=== PATIENT | female | born 1945 | race Hispanic/Latino ===

== ENCOUNTER 2023-06-05 08:13 | Day surgery (SDC) | payer OTHER, MEDICARE ==
[2023-06-03 11:12] LABS: BASOPHILS # (AUTO) 0.05 K/uL (0.00-0.20); BASOPHILS % (AUTO) 0.7 % (0.0-5.0); EOSINOPHILS # (AUTO) 0.08 K/uL (0.00-0.70); HEMATOCRIT 38.5 % (36-48); IMMATURE GRANULOCYTE ABSOLUTE 0.02 K/uL (0-1); LYMPHOCYTES # (AUTO) 1.6 K/uL (1.0-4.8); LYMPHOCYTES % (AUTO) 21.1 % (21.0-51.0); MEAN CORPUSCULAR HEMOGLOBIN 34.5 pg (27.0-33.0); MEAN CORPUSCULAR HGB CONC 35.6 g/dL (32.0-36.0); MONOCYTES # (AUTO) 1.1 K/uL (0.1-1.0); MONOCYTES % (AUTO) 13.8 % (3.0-13.0); NEUTROPHILS # (AUTO) 4.9 K/uL (1.8-7.7); NEUTROPHILS % (AUTO) 63.1 % (40.0-77.0); PLATELET COUNT (AUTO) 172 K/uL (130-400); RED BLOOD CELL COUNT(AUTO) 3.97 MIL/uL (4.00-5.50); RED CELL DISTRIBUTION WIDTH 13.1 % (11.0-15.5); WHITE BLOOD COUNT (AUTO) 7.7 K/uL (4.8-10.8)
[2023-06-03 11:16] VITALS: BP 147/78; PULSE 85; RESP 18
[2023-06-03 11:19] LABS: CREATININE 0.9 mg/dL (0.5-1.5)
[2023-06-03 11:21] LABS: INR 1.03 (0.85-1.15); PROTHROMBIN TIME 11.9 SEC (9.6-11.6)
[2023-06-03 11:22] LABS: PARTIAL THROMBOPLASTIN TIME 31.5 SEC (26.3-35.5)
[~2023-06-05] VITALS: Ht 154.9 cm; Wt 84.3 kg
[2023-06-05] VITALS (16 sets, daily range): BP systolic 135–165; BP diastolic 61–86; PULSE 79–93; RESP 14–17
[~2023-06-05 08:13] MED LIST: APIX5TAB PO; CARV25TA PO; HYDR25TA67 PO; HYDR50TA37 PO; ROSU10TA28 PO
[2023-06-05] MEDS ORDERED: NALOXONE HCL 0.4 MG/1 ML ML ONE (08:33)
[2023-06-05] MEDS ORDERED: 0.9%NACL 1000ML 1,000 ML IV ONE (08:43)
[2023-06-05] MEDS ORDERED: FLUMAZENIL 0.1MG/1ML 5ML VIAL IV ONE (09:23)
[2023-06-05] MEDS ORDERED: LIDOCAINE HCL 2% VISCOUS 15 ML UDCUP PO ONE (09:30)
[2023-06-05] MEDS ORDERED: FENTANYL CITRATE PF 50 MCG/1 ML 2ML VIAL IVP ONE (09:30)
[2023-06-05] MEDS ORDERED: MIDAZOLAM HCL 1 MG/ML 2ML VIAL IVP ONE (09:30)
[2023-06-05] MEDS: FENTANYL CITRATE PF 50 MCG/1 ML 2ML VIAL ONE (10:28)
[2023-06-05] MEDS: LIDOCAINE HCL 2% VISCOUS 15 ML UDCUP ONE (10:28)
[2023-06-05] MEDS: MIDAZOLAM HCL 1 MG/ML 2ML VIAL ONE (10:28)
== END 2023-06-05 12:05 | disposition home or self-care (01) ==
LOC: DAH 08:13
PROVIDERS: ATTEND Student in an Organized Health Care Education/Training Program
DX: I48.91 Unspecified atrial fibrillation (principal); I08.1 Rheumatic disorders of both mitral and tricuspid valves; E78.5 Hyperlipidemia, unspecified; I10 Essential (primary) hypertension; I25.10 Atherosclerotic heart disease of native coronary artery without angina pectoris; Z88.6 Allergy status to analgesic agent; Z88.8 Allergy status to other drugs, medicaments and biological substances; Z88.0 Allergy status to penicillin; Z88.1 Allergy status to other antibiotic agents; Z82.49 Family history of ischemic heart disease and other diseases of the circulatory system; Z80.9 Family history of malignant neoplasm, unspecified; Z79.899 Other long term (current) drug therapy
CPT/HCPCS: 80048; 85025; 85610; 85730; 36415; 93005; 93325; 93312; J3010; J7030; J2250; A4615; A4215; A4223 ×3; A4657; A7002; A4222; A4221; A4663; A4216 ×2; A4606; 99152; J2310; J3490; G0500

== ENCOUNTER 2023-07-23 08:00 | Day surgery (SDC) | payer OTHER, MEDICARE ==
[2023-07-21 13:52] LABS: BASOPHILS # (AUTO) 0.06 K/uL (0.00-0.20); BASOPHILS % (AUTO) 0.9 % (0.0-5.0); EOSINOPHILS # (AUTO) 0.11 K/uL (0.00-0.70); EOSINOPHILS % (AUTO) 1.7 % (0.0-8.0); HEMATOCRIT 37.9 % (36-48); IMMATURE GRANULOCYTE ABSOLUTE 0.02 K/uL (0-1); LYMPHOCYTES # (AUTO) 1.9 K/uL (1.0-4.8); LYMPHOCYTES % (AUTO) 29.1 % (21.0-51.0); MEAN CORPUSCULAR HEMOGLOBIN 33.9 pg (27.0-33.0); MEAN CORPUSCULAR HGB CONC 35.1 g/dL (32.0-36.0); MEAN CORPUSCULAR VOLUME 96.7 fL (79-99); MONOCYTES # (AUTO) 0.8 K/uL (0.1-1.0); MONOCYTES % (AUTO) 12.7 % (3.0-13.0); NEUTROPHILS # (AUTO) 3.6 K/uL (1.8-7.7); NEUTROPHILS % (AUTO) 55.3 % (40.0-77.0); PLATELET COUNT (AUTO) 144 K/uL (130-400); RED BLOOD CELL COUNT(AUTO) 3.92 MIL/uL (4.00-5.50); RED CELL DISTRIBUTION WIDTH 12.5 % (11.0-15.5); WHITE BLOOD COUNT (AUTO) 6.5 K/uL (4.8-10.8)
[2023-07-21 13:55] VITALS: BP 177/89; PULSE 71; RESP 18
[2023-07-21 14:04] LABS: CREATININE 0.9 mg/dL (0.5-1.0); POTASSIUM 3.5 mmol/L (3.5-5.1)
[2023-07-23] VITALS (11 sets, daily range): BP systolic 132–166; BP diastolic 60–76; PULSE 51–69; RESP 14–18
[~2023-07-23] VITALS: Ht 154.9 cm; Wt 84.8 kg
[~2023-07-23 08:00] MED LIST changes: +AMIO200T68 PO; +ATOR40TA69 PO; +FURO20TA4 PO; +POTA-364 PO; -ROSU10TA28 PO
[2023-07-23 09:40] LABS: INR 1.07 (0.85-1.15); PROTHROMBIN TIME 12.6 SEC (9.6-11.6)
== END 2023-07-23 11:20 | disposition home or self-care (01) ==
LOC: DAH 08:00
PROVIDERS: ATTEND Student in an Organized Health Care Education/Training Program
DX: I48.91 Unspecified atrial fibrillation (principal); E78.5 Hyperlipidemia, unspecified; I11.9 Hypertensive heart disease without heart failure; I25.10 Atherosclerotic heart disease of native coronary artery without angina pectoris; E87.1 Hypo-osmolality and hyponatremia; R60.0 Localized edema; Z79.899 Other long term (current) drug therapy; Z98.890 Other specified postprocedural states; Z79.01 Long term (current) use of anticoagulants; Z88.0 Allergy status to penicillin; Z88.8 Allergy status to other drugs, medicaments and biological substances
CPT/HCPCS: 80048; 85025; 85730; 36415 ×2; 92960; 93005 ×2; 85610; J2001; J3490; J2704; J2371; A4620; A4215; A4222; A4221; A4663; A4216; A4606; A4223 ×3